=== PATIENT | female | born 1995 | race Caucasian/White ===

== ENCOUNTER 2017-07-04 13:57 | Emergency (ER) | payer OTHER, SELFPAY | END 2017-07-04 15:03 | disposition home or self-care (01) | PROVIDERS: Emergency Provider Nurse Practitioner; Family Provider Pediatrics; Visit Provider Nurse Practitioner | DX: J06.9 Acute upper respiratory infection, unspecified (principal) | CPT/HCPCS: 87804; 99201 ==

== ENCOUNTER → 2018-11-10 16:06 | Outpatient (CLI) | payer OTHER, SELFPAY ==
[2018-11-10 16:51] LABS: Basophils % 0.4 % (0.1-2.0); Eosinophils # 0.2 K/mm3 (0.0-0.4); Eosinophils % 1.7 % (0.1-12.0); Hematocrit 40.3 % (37.0-47.0); Hemoglobin 13.1 g/dL (12.2-16.2); Lymphocytes # 2.4 K/mm3 (0.7-4.5); Lymphocytes % 26.2 % (10-50); Mean Corpuscular HGB Conc 32.5 g/dL (31.8-35.4); Mean Corpuscular Hemoglobin 24.9 pg (27.0-31.2); Mean Corpuscular Volume 76.7 fl (81-99); Mean Platelet Volume 6.9 fl (7.4-10.4); Monocytes # 0.4 K/mm3 (0.1-1.0); Monocytes % 4.2 % (1.7-9.3); Neutrophils # 6.1 K/mm3 (1.8-7.8); Neutrophils % 67.5 % (37.0-80.0); Platelet Count 320 K/mm3 (142-424); Red Blood Count 5.25 M/mm3 (4.20-5.40); Red Cell Distribution Width 13.9 % (11.5-17.5)
[2018-11-10 18:21] LABS: Amphetamine/Metha Screen,Urine Negative ng/mL (<1000); Barbiturates Screen,Urine Negative ng/mL (<200); Benzodiazepines Screen,Urine Negative ng/mL (<200); Cannabinoid Screen,Urine Negative ng/mL (<50); Cocaine Screen,Urine Negative ng/mL (<300); Methadone Screen,Urine Negative ng/mL (<300); Opiate Screen,Urine Negative ng/mL (<300); Phencyclidine Screen,Urine Negative ng/mL (<25)
[2018-11-10 19:06] LABS: Thyroid Stimulating Hormone 2.86 uIU/ml (0.358-3.740)
[2018-11-12 08:19] LABS: Rapid Plasma Reagin Ab Titer Non Reactive (NonRea<1:1)
[2018-11-13 06:21] LABS: HIV Screen 4th Generation wRfx Non Reactive (Non Reactive); Hepatitis B Surface Antigen Negative (Negative); Hepatitis C Antibody <0.1 s/co ratio (0.0-0.9); Rubella Antibodies, IgG 1.01 index (Immune >0.99)
== END ==
PROVIDERS: Visit Provider Obstetrics & Gynecology
DX: Z34.90 Encounter for supervision of normal pregnancy, unspecified, unspecified trimester (principal)
CPT/HCPCS: 36415; 80305; 84443; 85025; 86592; 86703; 86762; 86850; 87340; 87380; G0432

== ENCOUNTER → 2019-01-29 14:38 | Outpatient (CLI) | payer OTHER, SELFPAY ==
[2019-02-01 22:07] LABS: AFP Value 51.3 ng/mL (.); DIA MoM 1.69 (.); DIA Value 218.02 pg/mL (.); DSR (Second Trimester) 1 IN 10000 (.); Gest. Age on Collection Date 17.7 WEEKS (.); Maternal Age At EDD 23.7 yr (.); OSBR Risk 1 IN 1590 (.); Results Report (.); hCG MoM 0.54 (.); hCG Value 11841 mIU/mL (.); uE3 MoM 1.06 (.); uE3 Value 1.12 ng/mL (.)
[2019-02-03 14:06] LABS: Gestat. Age Based On EDD (.)
== END ==
PROVIDERS: Visit Provider Obstetrics & Gynecology
DX: Z34.90 Encounter for supervision of normal pregnancy, unspecified, unspecified trimester (principal)
CPT/HCPCS: 36415; 82106

== ENCOUNTER → 2019-03-22 11:32 | Outpatient (CLI) | payer OTHER, SELFPAY ==
[2019-03-22 15:20] LABS: Glucose 1 Hour 85 mg/dL (74-106)
== END ==
PROVIDERS: Visit Provider Obstetrics & Gynecology
DX: Z34.90 Encounter for supervision of normal pregnancy, unspecified, unspecified trimester (principal)
CPT/HCPCS: 36415

== ENCOUNTER → 2019-06-01 15:34 | Outpatient (CLI) | payer OTHER, SELFPAY | PROVIDERS: Visit Provider Obstetrics & Gynecology | DX: Z34.90 Encounter for supervision of normal pregnancy, unspecified, unspecified trimester (principal) | CPT/HCPCS: 86403 ==

== ENCOUNTER → 2019-06-15 10:04 | Outpatient (CLI) | payer OTHER, SELFPAY ==
[2019-06-15 10:29] LABS: Basophils % 0.2 % (0.1-2.0); Eosinophils # 0.1 K/mm3 (0.0-0.4); Eosinophils % 1.3 % (0.1-12.0); Hematocrit 34.6 % (37.0-47.0); Hemoglobin 10.4 g/dL (12.2-16.2); Lymphocytes % 20.8 % (10-50); Mean Corpuscular HGB Conc 30.1 g/dL (31.8-35.4); Mean Corpuscular Hemoglobin 22.4 pg (27.0-31.2); Mean Corpuscular Volume 74.6 fl (81-99); Mean Platelet Volume 9.5 fl (7.4-10.4); Monocytes # 0.5 K/mm3 (0.1-1.0); Neutrophils # 7.1 K/mm3 (1.8-7.8); Neutrophils % 72.8 % (37.0-80.0); Platelet Count 315 K/mm3 (142-424); Red Blood Count 4.64 M/mm3 (4.20-5.40); Red Cell Distribution Width 14.8 % (11.5-17.5); White Blood Count 9.8 K/mm3 (4.8-10.8)
[2019-06-15 12:00] LABS: Amylase 55 U/L (25-115); Anion Gap 16.4 mEq/L (5-15); Blood Urea Nitrogen 10 mg/dL (7-18); Calcium 8.8 mg/dL (8.5-10.1); Carbon Dioxide 23 mmol/L (21.0-32.0); Chloride 102 mmol/L (98-107); Creatinine,Serum 0.69 mg/dL (0.55-1.02); Estimated Glomerular Filt Rate 105 ml/min (>60); GFR (African American) 128 ML/MIN (>60); Glucose 78 mg/dL (74-106); Lipase 124 u/L (73-393); Potassium 4.4 mmoL/L (3.5-5.1); Sodium 137 mmol/L (136-145)
== END ==
PROVIDERS: Visit Provider Obstetrics & Gynecology
DX: O21.9 Vomiting of pregnancy, unspecified (principal)
CPT/HCPCS: 36415; 80048; 82150; 83690; 85025

== ENCOUNTER → 2019-06-22 10:01 | Outpatient (CLI) | payer OTHER, SELFPAY ==
[2019-06-22 10:04] LABS: Microscopic, Urine URINE MICROSCOPIC (MICROSCOPIC)
[2019-06-22 10:55] LABS: Basophils % 0.5 % (0.1-2.0); Eosinophils # 0.1 K/mm3 (0.0-0.4); Eosinophils % 1.5 % (0.1-12.0); Hematocrit 32.4 % (37.0-47.0); Hemoglobin 9.9 g/dL (12.2-16.2); Lymphocytes # 1.7 K/mm3 (0.7-4.5); Lymphocytes % 23.6 % (10-50); Mean Corpuscular HGB Conc 30.4 g/dL (31.8-35.4); Mean Corpuscular Hemoglobin 21.7 pg (27.0-31.2); Mean Corpuscular Volume 71.3 fl (81-99); Mean Platelet Volume 9.9 fl (7.4-10.4); Monocytes # 0.3 K/mm3 (0.1-1.0); Monocytes % 4.3 % (1.7-9.3); Platelet Count 290 K/mm3 (142-424); Red Blood Count 4.55 M/mm3 (4.20-5.40); Red Cell Distribution Width 14.2 % (11.5-17.5); White Blood Count 7.1 K/mm3 (4.8-10.8)
[2019-06-22 11:25] LABS: Alanine Aminotransferase 127 U/L (12-78); Albumin Level 2.5 gm/dL (3.4-5.0); Albumin/Globulin Ratio 0.7 (1.1-1.8); Alkaline Phosphatase 165 U/L (46-116); Anion Gap 16.6 mEq/L (5-15); Aspartate Amino Transferase 71 U/L (15-37); Bilirubin,Total 0.2 mg/dL (0.2-1.0); Blood Urea Nitrogen 10 mg/dL (7-18); Calcium 8.8 mg/dL (8.5-10.1); Carbon Dioxide 22 mmol/L (21.0-32.0); Chloride 102 mmol/L (98-107); Creatinine,Serum 0.92 mg/dL (0.55-1.02); Estimated Glomerular Filt Rate 76 ml/min (>60); GFR (African American) 92 ML/MIN (>60); Globulin 3.4 gm/dl (1.3-3.2); Glucose 105 mg/dL (74-106); Potassium 3.6 mmoL/L (3.5-5.1); Sodium 137 mmol/L (136-145); Total Protein,Serum 5.9 gm/dL (6.4-8.2)
[2019-06-22 12:27] LABS: Appearance,Urine SL CLOUDY (Clear); Blood, Urine Negative (Negative); Color,Urine DK YELLOW (Yellow); Glucose,Urine (UA) Negative (Negative); Ketones,Urine TRACE (Negative); Leukocyte Esterase,Urine Negative (Negative); Nitrate,Urine POSITIVE (Negative); PH,Urine 5.5 (5.0-8.5); Protein,Urine 1+ (Negative); Specific Gravity, Urine 1.025 (1.005-1.030); Urobilinogen,Urine 0.2 EU/dl (0.2)
[2019-06-22 12:41] LABS: Bilirubin,Urine Negative (Negative)
[2019-06-22 12:53] LABS: RBC,Urine Occasional #/hpf (0-3)
[2019-06-22 12:54] LABS: Bacteria,Urine 1+ /lpf
== END ==
PROVIDERS: Visit Provider Obstetrics & Gynecology
DX: Z01.818 Encounter for other preprocedural examination (principal); Z34.90 Encounter for supervision of normal pregnancy, unspecified, unspecified trimester
CPT/HCPCS: 36415; 80053; 81001; 85025

== ENCOUNTER 2019-06-25 05:03 | Inpatient (IN) ==
[2019-06-25 06:05] LABS: Microscopic, Urine URINE MICROSCOPIC (MICROSCOPIC)
[2019-06-25 06:16] LABS: Appearance,Urine CLEAR (Clear); Blood, Urine Negative (Negative); Color,Urine YELLOW (Yellow); Glucose,Urine (UA) Negative (Negative); Ketones,Urine TRACE (Negative); Leukocyte Esterase,Urine Negative (Negative); Protein,Urine 1+ (Negative); Specific Gravity, Urine 1.025 (1.005-1.030); Urobilinogen,Urine 0.2 EU/dl (0.2)
[2019-06-25 06:24] LABS: Bilirubin,Urine Negative (Negative)
[2019-06-25 06:26] LABS: Calcium 8.8 mg/dL (8.5-10.1)
[2019-06-25 06:49] LABS: Amphetamine/Metha Screen,Urine Negative ng/mL (<1000); Barbiturates Screen,Urine Negative ng/mL (<200); Benzodiazepines Screen,Urine Negative ng/mL (<200); Cannabinoid Screen,Urine Negative ng/mL (<50); Cocaine Screen,Urine Negative ng/mL (<300); Methadone Screen,Urine Negative ng/mL (<300); Opiate Screen,Urine Negative ng/mL (<300); Phencyclidine Screen,Urine Negative ng/mL (<25)
[2019-06-25 06:50] LABS: RBC,Urine Occasional #/hpf (0-3)
[2019-06-25 06:51] LABS: Hyaline Casts,Urine Occasional #/lpf (0); Mucus,Urine 1+ /lpf
[2019-06-25 06:52] LABS: Anion Gap 18.1 mEq/L (5-15)
--- NOTE | 2019-06-25 08:16 | Progress Note ---
[facility] Anesthesia Checklist - Structural Data Admitted From: Home Planned Operative Procedure/s: c/section Consent for Planned Operative Procedure(s) Verified: Yes - Airway Assessment C-Spine Mobility Assessed: Yes TMJ Mobility Assessed: Yes Dentition: Good Dentition - Neurological Assessment Level of Consciousness: Awake, Alert, Appropriate - Anesthesia Plan Anesthesia Risk discussed: Yes Anesthesia Plan: Verified ASA Class: II Anesthesia Type: Spinal [facility] History I have reviewed the patient's past medical history: Yes *Have you ever received a pneumonia vaccine?: No *Have you received a flu vaccine this season?: No Anesthesia experience/problems:: none Other Surgeries: Yes: Amputation: No Fractures: No - *Social History Smoking Status: Never smoker Alcohol Intake: never Alcohol Intake Frequency:: other Substance Use Type: denies use *Occupational Status:: unemployed *Travel in the last 8 weeks: None Family Hx:: No significant family history Para: 1
--- NOTE | 2019-06-25 08:17 | Progress Note ---
[facility] Anesthesia Record Part I Intake, IV Amount: 1,200 Estimated blood loss (mL): 600 Urine output (mL): 800 Blood Pressure: 138/84 SaO2: 100 Pulse Rate: 82 Respiratory Rate: 12 Temperature: 97.1 F Patient is:: Awake, Stable Stable to PACU at:: 08:10
--- NOTE | 2019-06-25 08:17 | Operative Note ---
Date of procedure: 06/25/19 (Term , previous section. Gestational hypertension.) Pre-op Diagnosis:: 1. Term intrauterine . 2. Previous section. 3. Gestational hypertension. Post-op Diagnosis:: 1. Term intrauterine , delivered. 8/9, 7 pound 9 ounce, 19.5 inch male , born at 0740. 2. Previous section. 3. Gestational hypertension. Procedure performed:: Repeat low transverse cervical section. Surgeon:: Luc Cotto MD Neurosurgery Physician(s):: MICHAEL Urbina. PRESS TOOL MAKER:: Luis Carlos Blake Anesthesia: spinal Estimated blood loss (mL): 400 Operative findings:: Term intrauterine . Previous section. Operative note:: After the patient was prepped and draped in usual fashion and spinal anesthesia was administered, a low Pfannenstiel incision was made through the previous incision, and the fat and fascia were in the usual fashion, bleeders being clamped and coagulated along the way. The peritoneum was entered with Metzenbaum scissors, and extended above and below. The bladder peritoneum was sharply and bluntly dissected from the area of incision, and the bladder was protected with a bladder blade. The uterus was entered in a low transverse fashion with a knife, and the incision was extended bluntly, bilaterally. The amniotic sac was ruptured for clear fluid. The baby was found to be in the LOT position of the vertex and, with appropriate fundal pressure, the head was easily delivered. There was no nuchal cord. The baby's nasal and oropharynx were bulb suctioned, and the baby cried spontaneously on the abdomen, as was delivered. The cord was clamped and cut, 3 vessels were noted to be within the cord, and cord blood was obtained. The cord pH was 7.38. The baby was handed into the arms of the attending line mechanic, Dr. Garcia, who assigned Apgars of 8 at 1 minute and 9 at 5 minutes to this 7 pound 9 ounce, 19.5 inch male infant, born at 0740. The baby was taken to the nursery in excellent condition, along with the father, who had been present in the operating room. The placenta was delivered manually, intact. A ring forceps was used to assure adequate drainage to the cervix; this was then passed off the field, as a nonsterile instrument. The uterus was closed in 2 layers, the first a running locked suture of #1 Vicryl as an endometrial layer, followed by a running unlocked suture of #1 Vicryl as a myometrial layer, imbricating over the first. The bladder periton eum was closed with a running unlocked suture of 2-0 Vicryl. Blood and clots were then swept from the gutters, and the tubes and ovaries were inspected and found to be normal. There were several small surface leiomyomata on the uterus, which remain in situ. The peritoneum was grasped with 3 Ursula clamps, and closed with a running semi-locked suture of 0 Vicryl. The muscle was approximated with a running unlocked suture of 0 Vicryl. The fascia was closed with a running locked suture of #1 Vicryl. The subcutaneous fat and Randal's fascia were closed with a running unlocked suture of 2-0 Vicryl. The skin was closed with a subcuticular suture of 3-0 Vicryl, and appropriately dressed. The sponge and needle count was correct. The estimated blood loss was 400 cc. A pelvic examination at the close of the procedure expressed blood and clots from the involuting uterus, with IV Pitocin running. The patient tolerated the procedure well, and was taken to PACU in excellent condition. Her blood type is A+. Her rubella titer is immune. She plans to bottlefeed. Condition: stable Disposition: PACU Specimens:: None. Complications:: None.
[2019-06-25 10:35] LABS: Basophils # 0.1 K/mm3 (0-0.2); Basophils % 0.5 % (0.1-2.0); Eosinophils # 0.2 K/mm3 (0.0-0.4); Eosinophils % 1.6 % (0.1-12.0); Hematocrit 33.2 % (37.0-47.0); Hemoglobin 10.4 g/dL (12.2-16.2); Lymphocytes # 2.1 K/mm3 (0.7-4.5); Lymphocytes % 22.1 % (10-50); Mean Corpuscular HGB Conc 31.4 g/dL (31.8-35.4); Mean Corpuscular Volume 71.9 fl (81-99); Mean Platelet Volume 12.1 fl (7.4-10.4); Monocytes # 0.4 K/mm3 (0.1-1.0); Monocytes % 4.4 % (1.7-9.3); Neutrophils # 6.6 K/mm3 (1.8-7.8); Neutrophils % 71.3 % (37.0-80.0); Platelet Count 279 K/mm3 (142-424); Red Blood Count 4.62 M/mm3 (4.20-5.40); Red Cell Distribution Width 14.6 % (11.5-17.5); White Blood Count 9.3 K/mm3 (4.8-10.8)
--- NOTE | 2019-06-25 14:29 | Progress Note ---
[facility] Anesthesia Record Part II Discharge Time: 08:40 Destination: Obstetric PACU nurse assessment reviewed?: Yes Patient Condition:: Good Anesthesia Complications:: None Swallowing reflex intact?: Yes Cyanosis?: No Blood Pressure: 120/58 Pulse Rate: 90 Temperature: 97.9 F Mental Status: Alert & Oriented Pain level:: 2 Nausea and/or vomitting:: None Intake, IV Amount: 1,200
[2019-06-26 04:33] LABS: Hematocrit 28.9 % (37.0-47.0); Hemoglobin 9.1 g/dL (12.2-16.2)
--- NOTE | 2019-06-26 09:32 | Progress Note ---
Internal Medicine - PN: Subj *Date: 06/26/19 *Time: 09:31 (This is postop day #1 and day #1. The patient is af ebrile. Vital signs stable. Wound clean. Abdomen soft. Lochia normal. Uterine fundus involuting well. Impression: Stable.) Exam Vital signs and Labs for Last 24 Hours: Temp Pulse Resp BP Pulse Ox 98.2 F 78 20 142/86 H 98 06/26/19 08:00 06/26/19 08:00 06/26/19 08:00 06/26/19 08:00 06/26/19 08:00 Laboratory Results - last 24 hr 06/25/19 05:50: WBC 9.3 D, RBC 4.62, Hgb 10.4 L, Hct 33.2 L, MCV 71.9 L, MCH 22.5 L, MCHC 31.4 L, RDW 14.6, Plt Count 279, MPV 12.1 H, Neut % (Auto) 71.3, Lymph % (Auto) 22.1, Williams % (Auto) 4.4, Eos % (Auto) 1.6, Baso % (Auto) 0.5, Neut # (Auto) 6.6, Lymph # (Auto) 2.1, Williams # (Auto) 0.4, Eos # (Auto) 0.2, Baso # (Auto) 0.1 06/26/19 04:05: Hgb 9.1 L D, Hct 28.9 L I & O for Last 24 hours: Intake & Output 06/23/19 06/24/19 06/25/19 06/26/19 11:59 11:59 11:59 11:59 Intake Total 1200 / 1200 1200 / 1200 Balance 1200 / 1200 1200 / 1200 Weight 256 lb
--- NOTE | 2019-06-26 11:48 | Pharmacy Consult Notes ---
[facility] Pharmacy VTE Monitoring - Patient Demographics Admission date: 06/25/19 Report Date: 06/26/19 Time: 11:48 Allergies/Adverse Reactions: Patient Allergies Sulfa (Sulfonamide Antibiotics) [SULFA (SULFONAMIDE ANTIBIOTICS)] Allergy (Mild, Verified 06/25/19 15:23) Rash Height: 1.6 m Weight: 116.12 kg - VTE Risk Labs: VTE Related Lab Results Hgb 9.1 g/dL (12.2-16.2) L D 06/26/19 04:05 Hct 28.9 % (37.0-47.0) L 06/26/19 04:05 Plt Count 279 K/mm3 (142-424) 06/25/19 05:50 BUN 11 mg/dL (7-18) 06/25/19 05:50 Creatinine 0.82 mg/dL (0.55-1.02) 06/25/19 05:50 Estimated Creat Clear 88 mL/min (50-200) 06/25/19 05:50 - Prophylaxis VTE Prophylaxis Ordered?: Yes Types of VTE Prophylaxis: IPCS Thigh High Location of Applied Device: Bilateral Lower Extremeties
[2019-06-27 08:42] VITALS: BP 144/83
--- NOTE | 2019-06-27 08:44 | Progress Note ---
Internal Medicine - PN: Subj *Date: 06/27/19 *Time: 08:43 (Is /postop day #2. The patient is afebrile. Her vital signs are stable. Her blood pressure is 144/82 DTRs are normal. Uterine fundus involuting well. Wound clean. Abdomen soft. Lochia normal. Hemoglobin 9.1 g, but clinically stable. The patient is anxious for early discharge and will be discharged later today.) Exam Vital signs and Labs for Last 24 Hours: Temp Pulse Resp BP Pulse Ox 97.7 F 89 18 144/83 H 100 06/27/19 08:00 06/27/19 08:00 06/27/19 08:00 06/27/19 08:00 06/27/19 08:00 I & O for Last 24 hours: Intake & Output 06/24/19 06/25/19 06/26/19 06/27/19 11:59 11:59 11:59 11:59 Intake Total 1200 / 1200 1200 / 1200 Balance 1200 / 1200 1200 / 1200 Weight 256 lb
--- NOTE | 2019-06-27 08:44 | Progress Note ---
Internal Medicine - PN: Subj *Date: 06/27/19 *Time: 08:43 Exam Vital signs and Labs for Last 24 Hours: Temp Pulse Resp BP Pulse Ox 97.7 F 89 18 144/83 H 100 06/27/19 08:00 06/27/19 08:00 06/27/19 08:00 06/27/19 08:00 06/27/19 08:00 I & O for Last 24 hours: Intake & Output 06/24/19 06/25/19 06/26/19 06/27/19 11:59 11:59 11:59 11:59 Intake Total 1200 / 1200 1200 / 1200 Balance 1200 / 1200 1200 / 1200 Weight 256 lb
--- NOTE | 2019-06-27 08:48 | Discharge Summary ---
General - General Admission date:: 06/25/19 Discharge date: 06/27/19 (This 23-year-old 3, now para 2, Ab1 white female was admitted at 38-5/7 weeks for repeat section because of gestational hypertension. On the date of admission, she was taken to the operating room, where she underwent a repeat low transverse cervical section without complications. The baby was an 8/9, 7 pound 9 ounce, 19.5 inch male infant, born at 0740 on 06/25/2019. The baby is bottlefeeding, has been circumcised, and is done well. and postoperatively, the patient is done well. Her blood pressure is 142/82. DTRs are normal. Lochia is normal. Uterine fundus has involuted well. Wound is clean. Abdomen soft. Her blood type is A+. Her rubella titer is immune. She is anxious for early discharge, and will be discharged today on iron and vitamins (initial hemoglobin 10.4 g; postop hemoglobin 9.1 g, but clinically stable), and on Percocet 5/325 (#20), 1 p.o. every 6 hours as needed pain. She is given appropriate instructions as to diet, exercise, and wound care, and she is to return to the office in 2 weeks for follow-up.) Objective Vital signs: Temp Pulse Resp BP Pulse Ox 97.7 F 89 18 144/83 H 100 06/27/19 08:00 06/27/19 08:00 06/27/19 08:00 06/27/19 08:00 06/27/19 08:00 Discharge Plan - Patient Discharge Instructions Additional Instructions: NO DRIVING FOR 2 WEEKS NO HEAVY LIFTING OR STRENUOUS ACTIVITY NOTHING IN VAGINA FOR [address] FOLLOW-UP WITH DR. DE LA ROSA ON 07/09/19 AT 9:00 Patient Instructions: How to Care for a Surgical Wound, Depression, Hemorrhage, [facility] Post Discharge Instructions - Follow up Plan Follow up with: Luc De La Rosa MD [Staff Physician] - 07/09/19 9:00 am Home Medications: Home Medications Medication Instructions Recorded Confirmed Type No Known Home Medications 06/08/19 06/25/19 History Prescriptions/Medication Reconciliation: No Action No Known Home Medications - Problem Reconciliation Problems Reviewed?: Yes
== END 2019-06-27 14:42 | disposition home or self-care (01) | DRG 788 ==
LOC: OB 05:03
PROVIDERS: ADMIT Obstetrics & Gynecology; ATTEND Obstetrics & Gynecology

== ENCOUNTER 2023-01-29 18:07 | Emergency (ER) | payer OTHER, SELFPAY ==
[2023-01-29 18:30] VITALS: BP 129/84; PULSE 95; RESP 20; TEMP 36.4; O2SAT 98; BMI 45.8
[2023-01-29 18:50] LABS: UTC Strep Screen (Rapid) Negative (Negative)
[2023-01-29 18:51] VITALS: BP 129/84; PULSE 95; RESP 20; TEMP 36.4; O2SAT 98
--- NOTE | 2023-01-29 18:55 | EXP.UTC ---
Discharge Plan Disposition Patient Disposition: Home, Self-Care Condition: Good Prescriptions Prescriptions: No Action norgestimate-ethinyl estradiol [Sprintec (28)] 0.25-35 mg-mcg tablet See Rx Instructions .ROUTE .COMPLEX Qty: 84 3RF Dose Instruction: Take 1 tablet by mouth once daily Rx Instructions: Take 1 tablet by mouth once daily Referrals Follow up/Referrals: Radha Garcia APRN [Primary Care Provider] - See instructions Activity Restrictions/Add. Instructions Additional Instructions/Restrictions: Will send for strep confirmation. Call in 2 days for strep confirmation results. Clinical Impressions Clinical Impression: Upper respiratory tract infection Qualifiers: URI type: unspecified viral URI Qualified Code(s): J06.9 - Acute upper respiratory infection, unspecified Instructions Patient Instructions: DI for Viral Upper Respiratory Infection -- Adult Discharge ED Provider: Marivel Meredith [facility] General Stated complaint: congestion Mode of Arrival: Ambulatory Source of Information: Patient Limitations: No Limitations Time Seen by Provider: 01/29/23 18:55 Description of Symptoms (Recalled from Triage Doc. by RN): PATIENT C/O FEVER, BODY ACHES, CHILLS AND CONGESTION X 2 DAYS HEENT Symptoms (Recalled from RN notes): Yes Resp Symptoms (Recalled from RN notes): No Skin Symptoms (Recalled from RN notes): No MS Symptoms (Recalled from RN notes): No Functional Status (Recalled from RN notes): WNL History of Present Illness Provider Complaint: Pt relates that she has had fever, runny nose, congestion, body aches, and chills for 2 days. She states that her sons have has similar symptoms. She has taken Tylenol for her symptoms. Related Data Previous Rx's Medication Instructions Recorded norgestimate 0.25 mg-ethinyl See Rx Instructions .Route 01/08/23 estradiol 35 mcg tablet (Sprintec .COMPLEX #84 tabs (28)) Allergies Allergy/AdvReac Type Severity Reaction Status Date / Time Sulfa (Sulfonamide Allergy Mild Rash Verified 08/01/22 14:30 Antibiotics) [SULFA (SULFONAMIDE ANTIBIOTICS)] Worker's Comp Is this a Worker's Comp case?: No [facility] Disclaimer: The information contained in this section may have been updated after the patient was seen, as this information can be updated by other users. Social History Smoking Status: Never smoker alcohol intake: never substance use type: denies use current occupational status: other Travel in the last 8 weeks: None ROS Obtained: Yes All systems reviewed & no additional complaints except as documented Constitutional Constitutional: Reports system reviewed and no additional complaints, except as documented, Reports body ache, Reports chills, Reports fatigue, Reports fever(s) and Reports malaise Eyes Eyes: Reports system reviewed and no additional complaints, except as documented ENT Ears, Nose, Mouth, and Throat: Reports system reviewed and no additional complaints, except as documented, Reports nasal congestion, Reports nasal discharge, Reports odynophagia and Reports post nasal drip Cardiovascular Cardiovascular: Reports system reviewed and no additional complaints, except as documented Respiratory Respiratory: Reports system reviewed and no additional complaints, except as documented Gastrointestinal Gastrointestingal: Reports system reviewed and no additional complaints, except as documented and odynophagia Genitourinary Female Genitourinary: Reports system reviewed and no additional complaints, except as documented Musculoskeletal Musculoskeletal: Reports system reviewed and no additional complaints, except as documented Integumentary/Breasts Skin/Breast: Reports system reviewed and no additional complaints, except as documented Neurologic Neurologic: Reports system reviewed and no additional complaints, except as documented Endocrine Endocrine: Reports system reviewed and no additional complaints, ex
== END 2023-01-29 19:42 | disposition home or self-care (01) ==
PROVIDERS: Emergency Provider Nurse Practitioner Family; PCP Nurse Practitioner
DX: B34.9 Viral infection, unspecified (principal); J06.9 Acute upper respiratory infection, unspecified; R50.9 Fever, unspecified
CPT/HCPCS: 87880; 99203; 99212; G0463

== ENCOUNTER 2023-04-11 16:58 | Emergency (ER) | payer OTHER, SELFPAY ==
[2023-04-11 16:58] VITALS: BP 141/89; PULSE 114; RESP 18; TEMP 37.4; O2SAT 99; BMI 50.2
--- NOTE | 2023-04-11 17:10 | EXP.UTC ---
Discharge Plan Disposition Patient Disposition: Home, Self-Care Condition: Good Prescriptions Prescriptions: New ibuprofen [IBU] 800 mg tablet 800 mg PO Q8HP PRN (Reason: Moderate Pain) Qty: 30 0RF ondansetron 4 mg Tablet,Disintegrating 4 mg PO Q8H PRN (Reason: Nausea) Qty: 12 0RF No Action norgestimate-ethinyl estradiol [Sprintec (28)] 0.25-35 mg-mcg tablet See Rx Instructions .ROUTE .COMPLEX Qty: 84 3RF Dose Instruction: Take 1 tablet by mouth once daily Rx Instructions: Take 1 tablet by mouth once daily spironolactone 50 mg tablet 50 mg PO DAILY Qty: 30 2RF citalopram 20 mg tablet 20 mg PO DAILY Patient Comments: TAKE 1 TABLET BY MOUTH ONCE DAILY buspirone 10 mg tablet 10 mg PO BID PRN (Reason: Anxiety) Patient Comments: TAKE 1 TABLET BY MOUTH TWICE DAILY NEEDED Referrals Follow up/Referrals: Radha Garcia APRN [Primary Care Provider] - See instructions Activity Restrictions/Add. Instructions Additional Instructions/Restrictions: Drink plenty of fluids. Take tylenol or ibuprofen for pain or fever. Take the medications as directed. Follow up with your regular doctor. GO TO THE ER FOR ANY WORSENING SYMPTOMS Clinical Impressions Clinical Impression: Acute viral syndrome, Head ache Instructions Patient Instructions: DI for Viral Syndrome, Ketorolac Injection, Dexamethasone Injection Discharge ED Provider: Mateus Noe [facility] General Stated complaint: h/a, upset stomach Time Seen by Provider: 04/11/23 17:10 History of Present Illness Provider Complaint: She states that for the past 2 days she has had malaise, n/v/d and a headache. Related Data Home Medications Medication Instructions Recorded Confirmed buspirone 10 mg tablet 10 mg PO BID PRN Anxiety 04/11/23 04/11/23 citalopram 20 mg tablet 20 mg PO DAILY . 04/11/23 04/11/23 Previous Rx's Medication Instructions Recorded norgestimate 0.25 mg-ethinyl See Rx Instructions .Route 01/08/23 estradiol 35 mcg tablet (Sprintec .COMPLEX #84 tabs (28)) spironolactone 50 mg tablet 50 mg PO DAILY #30 tabs 02/11/23 ibuprofen 800 mg tablet (IBU) 800 mg PO Q8HP PRN Moderate Pain 04/11/23 #30 tabs ondansetron 4 mg disintegrating 4 mg PO Q8H PRN Nausea #12 tabs 04/11/23 tablet Allergies Allergy/AdvReac Type Severity Reaction Status Date / Time Sulfa (Sulfonamide Allergy Mild Rash Verified 04/11/23 17:11 Antibiotics) [SULFA (SULFONAMIDE ANTIBIOTICS)] [facility] Disclaimer: The information contained in this section may have been updated after the patient was seen, as this information can be updated by other users. Social History Smoking Status: Never smoker alcohol intake: never substance use type: denies use current occupational status: other Travel in the last 8 weeks: None ROS Obtained: Yes All systems reviewed & no additional complaints except as documented Constitutional Constitutional: Denies chills, Denies fever(s) and Reports headache(s) Eyes Eyes: Denies eye discharge ENT Ears, Nose, Mouth, and Throat: Denies dizziness, Denies otalgia, Reports headache(s) and Denies sore throat Cardiovascular Cardiovascular: Denies chest pain Respiratory Respiratory: Denies shortness of breath, Denies chest congestion, Denies cough, Denies stridor and Denies wheezing Gastrointestinal Gastrointestingal: Reports diarrhea, nausea and vomiting; Denies abdominal pain Musculoskeletal Musculoskeletal: Reports system reviewed and no additional complaints, except as documented and Denies arthralgias Integumentary/Breasts Skin/Breast: Denies rash Neurologic Neurologic: Reports as per HPI, Denies dizziness, Reports headache(s) and Denies paresthesias Allergic/Immunologic Allergic/Immunologic: Denies wheezing Physical Exam General General appearance: alert and in no apparent distress Head H
[2023-04-11 18:31] VITALS: BP 141/89; PULSE 114; RESP 18; TEMP 37.4; O2SAT 99
== END 2023-04-11 18:31 | disposition home or self-care (01) ==
PROVIDERS: Emergency Provider Nurse Practitioner Family; PCP Nurse Practitioner
DX: R51.9 Headache, unspecified (principal); R11.2 Nausea with vomiting, unspecified; R19.7 Diarrhea, unspecified; B34.9 Viral infection, unspecified
CPT/HCPCS: 87635; 96372; 99212; 99214; G0463

== ENCOUNTER 2023-08-22 17:02 | Emergency (ER) | payer OTHER, SELFPAY ==
[2023-08-22 17:50] VITALS: BP 136/84; PULSE 98; RESP 19; TEMP 37.1; O2SAT 99; BMI 50.3
[2023-08-22 18:09] LABS: UTC Influenza A Antigen Negative (Negative); UTC Influenza B Antigen Negative (Negative); UTC Strep Screen (Rapid) Negative (Negative)
--- NOTE | 2023-08-22 18:11 | ED_ITS ---
Discharge Plan Disposition Patient Disposition: Home, Self-Care Condition: Good Prescriptions Prescriptions: No Action norgestimate-ethinyl estradiol [Sprintec (28)] 0.25-35 mg-mcg tablet See Rx Instructions .ROUTE .COMPLEX Qty: 84 3RF Dose Instruction: Take 1 tablet by mouth once daily Rx Instructions: Take 1 tablet by mouth once daily spironolactone 50 mg tablet 50 mg PO DAILY Qty: 30 2RF citalopram 20 mg tablet 20 mg PO DAILY Patient Comments: TAKE 1 TABLET BY MOUTH ONCE DAILY buspirone 10 mg tablet 10 mg PO BID PRN (Reason: Anxiety) Patient Comments: TAKE 1 TABLET BY MOUTH TWICE DAILY NEEDED ibuprofen [IBU] 800 mg tablet 800 mg PO Q8HP PRN (Reason: Moderate Pain) Qty: 30 0RF ondansetron 4 mg Tablet,Disintegrating 4 mg PO Q8H PRN (Reason: Nausea) Qty: 12 0RF Referrals Follow up/Referrals: Radha Garcia APRN [Primary Care Provider] - See instructions Activity Restrictions/Add. Instructions Additional Instructions/Restrictions: *Monitor Temp, Over the counter Motrin or Tylenol as directed/as needed Tylenol every 4 hours and Motrin every 6 hours (as long as your family doctor has told you that you can take it) for fever or pain. and straight to ER if unable to lower temp less than 101.0 after medication given *Warm salt water gargles may help to soothe the throat *Throat Lozenges? *Warm fluids like tea with honey may help to soothe the throat? *Sleep elevated *Humidifier/Vaporizer Your throat swab was sent for culture. Those results are typically sent to your primary care. Be sure to follow up in 2-3 days with your family doctor/primary care physician if no improvement so they can review those result and treat if necessary. If you don?t have a primary care doctor, I recommend you get one but in the mean time, you will have to return to a walk in clinic Follow up IMMEDIATELY for new or worsening symptoms or no Noticeable improvement over the next 48-72 hours. 911 for difficulty breathing or swallowing Clinical Impressions Clinical Impression: Viral syndrome Instructions Patient Instructions: Sore Throat Discharge ED Provider: Marla Hawkins [facility] HPI General Stated complaint: st ba nausea Mode of Arrival: Ambulatory Source of Information: Patient Limitations: No Limitations Time Seen by Provider: 08/22/23 18:11 Description of Symptoms (Recalled from Triage Doc. by RN): PATIENT C/O SORE THROAT AND BODY ACHES SINCE YESTERDAY HEENT Symptoms (Recalled from RN notes): Yes Resp Symptoms (Recalled from RN notes): No Skin Symptoms (Recalled from RN notes): No MS Symptoms (Recalled from RN notes): No Functional Status (Recalled from RN notes): WNL History of Present Illness Provider Complaint: Patient states that she has been having sore throat and body aches since yesterday States today she was still not feeling any better so today she came in to get checked Related Data Home Medications Medication Instructions Recorded Confirmed buspirone 10 mg tablet 10 mg PO BID PRN Anxiety 04/11/23 04/11/23 citalopram 20 mg tablet 20 mg PO DAILY . 04/11/23 04/11/23 Previous Rx's Medication Instructions Recorded norgestimate 0.25 mg-ethinyl See Rx Instructions .Route 01/08/23 estradiol 35 mcg tablet (Sprintec .COMPLEX #84 tabs (28)) spironolactone 50 mg tablet 50 mg PO DAILY #30 tabs 02/11/23 ibuprofen 800 mg tablet (IBU) 800 mg PO Q8HP PRN Moderate Pain 04/11/23 #30 tabs ondansetron 4 mg disintegrating 4 mg PO Q8H PRN Nausea #12 tabs 04/11/23 tablet Allergies Allergy/AdvReac Type Severity Reaction Status Date / Time Sulfa (Sulfonamide Allergy Mild Rash Verified 04/11/23 17:11 Antibiotics) [SULFA (SULFONAMIDE ANTIBIOTICS)] Worker's Comp Is this a Worker's Comp case?: No [facility] Disclaimer: The information contained in this section may have been updated after the patient was seen, as this information can be updated by other users. Social History Smoking Status: Never smoker alcohol intake: never substance use type: denies use current occupational status: other Travel in the last 8 weeks: None ROS Obtained: Yes All systems reviewed & no additional complaints except as documented and Yes Systems reviewed as appropriate & no additional complaints except as documented Constitutional Constitutional: Reports system reviewed and no additional complaints, except as documented, Reports as per HPI and Reports body ache ENT Ears, Nose, Mouth, and Throat: Reports system reviewed and no additional complaints, except as documented, Reports as per HPI and Reports sore throat Cardiovascular Cardiovascular: Reports system reviewed and no additional complaints, except as documented and Reports as per HPI Respiratory Respiratory: Reports system reviewed and no additional complaints, except as documented and Reports as per HPI Gastrointestinal Gastrointestingal: Reports system reviewed and no additional complaints, except as documented and as per HPI Physical Exam General General appearance: alert and in no apparent distress ENT ENT exam: Present mucous membranes moist Expanded ENT Exam Nose exam: Absent sinus tenderness Throat exam: Present tonsillar erythema Respiratory Respiratory exam: Present normal lung sounds bilaterally; Absent respiratory distress or wheezes Cardiovascular Cardiovascular exam: Present regular rate, normal rhythm and normal heart sounds Abdominal Exam Abdominal exam: Present soft and normal bowel sounds; Absent distention or tenderness Neurological Exam Neurological exam: Present alert, oriented X3 and normal gait Medical Decision Making Barry Inquiry Pt receiving controlled substance: No Barry was queried for this patient: No Vital Signs: 08/22/23 17:50 Temperature 98.8 F Temperature Source Oral Pulse Rate [Left Brachial] 98 H Respiratory Rate 19 Blood Pressure [Left Arm] 136/84 Blood Pressure Mean [Left Arm] 101 Blood Pressure Source [Left Arm] Automatic Cuff Blood Pressure Position [Left Arm] Sitting 02 Sat by Pulse Oximetry 99 Oxygen Delivery Method Room Air Lab Data Lab results reviewed: Yes I reviewed the patient's lab results. Lab Results 08/22/23 17:53: Influenza Type A Ag Negative, Influenza Type B Ag Negative, Strep Scn Rapid Clinic Negative Orders (Tests/Meds): ORDERS Category Date Time Status Strep Screen Confirmation Stat Micro 08/22/23 17:53 Received
[2023-08-22 18:24] VITALS: BP 136/84; PULSE 98; RESP 19; TEMP 37.1; O2SAT 99
== END 2023-08-22 18:28 | disposition home or self-care (01) ==
PROVIDERS: Emergency Provider Nurse Practitioner; PCP Nurse Practitioner
DX: R07.0 Pain in throat (principal); M79.18 Myalgia, other site; B34.9 Viral infection, unspecified
CPT/HCPCS: 87804; 87880; 99212; 99213; G0463

== ENCOUNTER 2023-11-30 05:11 | Emergency (ER) | payer OTHER, SELFPAY ==
[2023-11-30] VITALS (7 sets, daily range): BP systolic 132–151; BP diastolic 71–92; PULSE 75–96; RESP 13–20; TEMP 36.7–36.9; O2SAT 94–100; BMI 51.3
--- NOTE | 2023-11-30 05:10 | ECG_ITS ---
APPROVED REPORT Exam: Resting ECG HR:90 bpm ECG Measurements Heart Rate 90 AXES MN 157 P 40 QRSd 90 QRS -3 QT 341 T 10 QTc 388 Conclusion SINUS RHYTHM MODERATE VOLTAGE CRITERIA FOR LVH, CONSIDER NORMAL VARIANT [MEETS CRITERIA IN ONE OF: R(aVL), S(V1), R(V5), R(V5/V6)+S(V1)] BORDERLINE ECG Electronically signed by : SOFIA MATHEWS, 11/30/2023 07:31:30
--- NOTE | 2023-11-30 05:25 | XR_ITS ---
PROCEDURE INFORMATION: Exam: XR Chest Exam date and time: 11/30/2023 5:42 AM Age: 28 years old Clinical indication: Pain; Chest pressure; Additional info: Cp TECHNIQUE: Imaging protocol: Radiologic exam of the chest. Views: 1 view. COMPARISON: No relevant prior studies available. FINDINGS: Lungs: Increased interstitial markings and perhaps reticular/nodular infiltrates of the right lower lobe. Pleural spaces: Unremarkable. No pleural effusion. No pneumothorax. Heart/Mediastinum: Unremarkable. No cardiomegaly. Bones/joints: Unremarkable. IMPRESSION: Increased interstitial markings and reticular/nodular infiltrates of the right lower lobe. Early infectious process cannot be entirely excluded. Correlate clinically.
--- NOTE | 2023-11-30 05:30 | ED_ITS ---
Discharge Plan Disposition Patient Disposition: Home, Self-Care Condition: Good Prescriptions Prescriptions: New omeprazole 20 mg capsule,delayed release(DR/EC) 20 mg PO DAILY 28 Days Qty: 28 0RF No Action norgestimate-ethinyl estradiol [Sprintec (28)] 0.25-35 mg-mcg tablet See Rx Instructions .ROUTE .COMPLEX Qty: 84 3RF Dose Instruction: Take 1 tablet by mouth once daily Rx Instructions: Take 1 tablet by mouth once daily spironolactone 50 mg tablet 50 mg PO DAILY Qty: 30 2RF citalopram 20 mg tablet 20 mg PO DAILY Patient Comments: TAKE 1 TABLET BY MOUTH ONCE DAILY buspirone 10 mg tablet 10 mg PO BID PRN (Reason: Anxiety) Patient Comments: TAKE 1 TABLET BY MOUTH TWICE DAILY NEEDED ibuprofen [IBU] 800 mg tablet 800 mg PO Q8HP PRN (Reason: Moderate Pain) Qty: 30 0RF ondansetron 4 mg Tablet,Disintegrating 4 mg PO Q8H PRN (Reason: Nausea) Qty: 12 0RF Referrals Follow up/Referrals: Amos Dawson MD [Staff Physician] - See instructions Activity Restrictions/Add. Instructions Additional Instructions/Restrictions: As we discussed, your workup was reassuring in regard to any evidence of a heart attack or infection. Given that your symptoms have improved, it is possible that your symptoms are due to reflux causing pain in your chest. I have prescribed acid reducing medications, please return with any new or worsening symptoms. Clinical Impressions Clinical Impression: Chest pain Instructions Patient Instructions: DI for Diarrhea and Traveler's Diarrhea -- Adult, DI for Diarrhea and Traveler's Diarrhea -- Child, DI for Nausea -- Adult, DI for Nausea -- Child Discharge ED Provider: Perry Wallace General Adult HPI <Steven Harrell MD - Last Filed: 11/30/23 07:27> General Chief complaint: Nausea/Vomiting/Diarrhea Stated complaint: CP Time Seen by Provider: 11/30/23 05:12 Mode of Arrival: Ambulatory Source of Information: Patient Limitations: No Limitations Description of Symptoms (Recalled from ER Triage Doc. by RN): 28 F presents from home with c/o pressure at the level of her sternal notch. She states this started a couple of hours ago; however, it did not wake her up as she has been up throughout the night with a stomach virus. Patient reports this pressure as 2/10 on the pain scale. VSS, NAD History of Present Illness HPI narrative: Patient is a 28-year-old female with no pertinent past medical history who presents emergency department for evaluation of chest pain. History is obtained by patient at bedside. Patient has had chest pain since couple of hours ago, substernal and in her throat, pressure, does not radiate. Patient has had nonbloody vomiting earlier today, sick contacts at home. No other acute complaints at this time. Related Data Home Medications Medication Instructions Recorded Confirmed buspirone 10 mg tablet 10 mg PO BID PRN Anxiety 04/11/23 04/11/23 citalopram 20 mg tablet 20 mg PO DAILY . 04/11/23 04/11/23 Previous Rx's Medication Instructions Recorded norgestimate 0.25 mg-ethinyl See Rx Instructions .Route 01/08/23 estradiol 35 mcg tablet (Sprintec .COMPLEX #84 tabs (28)) spironolactone 50 mg tablet 50 mg PO DAILY #30 tabs 02/11/23 ibuprofen 800 mg tablet (IBU) 800 mg PO Q8HP PRN Moderate Pain 04/11/23 #30 tabs ondansetron 4 mg disintegrating 4 mg PO Q8H PRN Nausea #12 tabs 04/11/23 tablet omeprazole 20 mg capsule,delayed 20 mg PO DAILY 28 days #28 caps 11/30/23 release Allergies Allergy/AdvReac Type Severity Reaction Status Date / Time Sulfa (Sulfonamide Allergy Mild Rash Verified 04/11/23 17:11 Antibiotics) [SULFA (SULFONAMIDE ANTIBIOTICS)] [facility] <Steven Harrell MD - Last Filed: 11/30/23 07:27> [facility] Disclaimer: The information contained in this section may have been updated after the patient was seen, as this information can be updated by other users. Social History Smoking Status: Never smoker alcohol intake: never substance use type: denies use current occupational status: other Travel in the last 8 weeks: None <Steven Harrell MD - Last Filed: 11/30/23 07:27> ROS Obtained: Yes Systems reviewed as appropriate & no additional complaints except as documented Physical Exam <Steven Harrell MD - Last Filed: 11/30/23 07:27> General General appearance: alert and in no apparent distress Head Head exam: atraumatic and normocephalic Eye Eye exam: Present PERRL ENT ENT exam: Present mucous membranes moist Neck Neck exam: Present normal inspection Chest Chest inspection: Present normal inspection and symmetric chest wall rise Respiratory Respiratory exam: Present normal lung sounds bilaterally; Absent respiratory distress Cardiovascular Cardiovascular exam: Present regular rate and normal rhythm Abdominal Exam Abdominal exam: Present soft; Absent tenderness Extremities Exam Extremities exam: Present normal inspection Neurological Exam Neurological exam: Present alert Psychiatric Psychiatric exam: Present normal affect Skin Skin exam: Present warm and dry Medical Decision Making <Steven Harrell MD - Last Filed: 11/30/23 07:27> Barry Inquiry Pt receiving controlled substance: No Vital Signs: 11/30/23 05:11 11/30/23 05:31 11/30/23 07:01 Temperature 98.5 F Temperature Source Oral Pulse Rate 75 96 H Pulse Rate [Left] 90 Respiratory Rate 18 20 20 Blood Pressure 137/92 H 149/91 H Blood Pressure [Right Arm] 151/87 H Blood Pressure Mean [Right Arm] 108 Blood Pressure Source [Right Arm] Automatic Cuff Blood Pressure Position [Right Arm] Sitting 02 Sat by Pulse Oximetry 100 98 95 Oxygen Delivery Method Room Air 11/30/23 07:31 11/30/23 08:01 11/30/23 08:30 Temperature Temperature Source Pulse Rate 80 86 84 Pulse Rate [Left] Respiratory Rate 19 20 19 Blood Pressure 133/71 141/89 H 132/92 H Blood Pressure [Right Arm] Blood Pressure Mean [Right Arm] Blood Pressure Source [Right Arm] Blood Pressure Position [Right Arm] 02 Sat by Pulse Oximetry 96 96 94 L Oxygen Delivery Method 11/30/23 08:50 Temperature 98.0 F Temperature Source Pulse Rate 90 Pulse Rate [Left] Respiratory Rate 13 Blood Pressure 132/92 H Blood Pressure [Right Arm] Blood Pressure Mean [Right Arm] Blood Pressure Source [Right Arm] Blood Pressure Position [Right Arm] 02 Sat by Pulse Oximetry Oxygen Delivery Method Lab Data Lab Results 11/30/23 05:15: WBC 4.5 L, RBC 5.03, Hgb 13.5, Hct 41.5, MCV 82.5, MCH 26.9 L, MCHC 32.6, RDW 13.5, Plt Count 226, MPV 8.2, Neut % (Auto) 60.5, Lymph % (Auto) 26.0, [place] % (Auto) 8.7, Eos % (Auto) 3.2, Baso % (Auto) 1.5, Neut # (Auto) 2.7, Lymph # (Auto) 1.2, [place] # (Auto) 0.4, Eos # (Auto) 0.2, Baso # (Auto) 0.1, D- Dimer 0.38, Sodium 138, Potassium 3.8, Chloride 103, Carbon Dioxide 26, Anion Gap 12.8, BUN 20 H, Creatinine 0.80, Estimated Creat Clear 87, Estimated GFR 85, Est GFR ( Amer) 103, Glucose 105 H, Calcium 9.0, Total Bilirubin 0.3, AST 38 H, ALT 36, Alkaline Phosphatase 64, Troponin I < 0.01, Total Protein 7.3, Albumin 4.0, Globulin 3.3 H, Albumin/Globulin Ratio 1.2, Lipase 84, Serum HCG, Qual Negative 11/30/23 07:10: Troponin I < 0.01 11/30/23 05:15 11/30/23 05:15 Orders (Tests/Meds): ED MEDICATIONS Discontinued Medications Generic Name Dose Route Start Last Admin Trade Name Freq PRN Reason Stop Dose Admin Acetaminophen 1,000 mg 11/30/23 05:29 11/30/23 05:50 Acetaminophen 500mg Tab PO 11/30/23 05:30 1,000 mg ONCE ONE Administration Belladonna Alkaloids 60 ml 11/30/23 05:29 11/30/23 05:51 Belladonna Alkaloids 60 Ml Ml PO 11/30/23 05:30 60 ml ONCE ONE Administration Ketorolac Tromethamine 15 mg 11/30/23 05:29 11/30/23 05:50 Ketorolac 30mg/Ml Vial IV 11/30/23 05:30 15 mg ONCE ONE Administration ORDERS Category Date Time Status CXR --portable [XR chest portable] Stat Exams 11/30/23 05:25 Completed CBC w/Auto Diff [Complete Blood Count Auto Diff] Stat Lab 11/30/23 05:15 Completed CMP [Comprehensive Metabolic Panel] Stat Lab 11/30/23 05:15 Completed D-Dimer Stat Lab 11/30/23 05:15 Completed HCG Qualitative, Serum Stat Lab 11/30/23 05:15 Completed Lipase Stat Lab 11/30/23 05:15 Completed Trop I [Troponin I] Stat Lab 11/30/23 05:15 Completed Troponin I Q3H Lab 11/30/23 07:10 Completed ECG Data Tracing #1: Independently interpreted by me, rate is 90, rhythm is regular, axis is normal, no ST elevation in anatomical contiguous leads, QTc 388. HEART Score History (anamnesis): Slightly suspicious ECG: Normal Age: <45 years Risk factors: No known risk factors Troponin: </= normal limit HEART Score: 0 Medical Decision Narrative: In summary patient is a 20-year-old female past medical history described above who presents emergency department for evaluation of chest pain. Patient is hemodynamically stable nontoxic-appearing upon arrival, afebrile. Differential diagnosis includes ACS, noncardiac chest pain, viral syndrome, among others. Workup will be conducted with hematologic labs, chest x-ray, EKG, serial troponins, D-dimer. Initial interventions include Tylenol, Toradol, GI cocktail. Initial workup reviewed by me, hematologic labs are nonactionable, D- dimer excludes pulmonary embolism, initial troponin undetectably low, hCG negative. Chest x-ray remarkable for interstitial markings and reticular infiltrates of the right lower lobe for which early infectious process cannot be excluded entirely. Patient does not have a dense lobular pneumonia and has no significant cough, is well-appearing without leukocytosis therefore interventions at this time will be deferred. The patient was placed in observation status at 0612. Medical necessity for observational status is serial troponins. The patient was provided serial reevaluations and cardiac monitoring while awaiting results. Repeat evaluation pending at time of transition of care to the oncoming physician, Dr. Wallace. [Results of testing during observation are remarkable for:]. [Because of these results I feel patient can be discharged with follow-up with her PCP versus feel patient requires admission due to]. Total time in observation was [total time]. <Perry Wallace MD - Last Filed: 11/30/23 18:27> Vital Signs: 11/30/23 05:11 11/30/23 05:31 11/30/23 07:01 Temperature 98.5 F Temperature Source Oral Pulse Rate 75 96 H Pulse Rate [Left] 90 Respiratory Rate 18 20 20 Blood Pressure 137/92 H 149/91 H Blood Pressure [Right Arm] 151/87 H Blood Pressure Mean [Right Arm] 108 Blood Pressure Source [Right Arm] Automatic Cuff Blood Pressure Position [Right Arm] Sitting 02 Sat by Pulse Oximetry 100 98 95 Oxygen Delivery Method Room Air 11/30/23 07:31 11/30/23 08:01 11/30/23 08:30 Temperature Temperature Source Pulse Rate 80 86 84 Pulse Rate [Left] Respiratory Rate 19 20 19 Blood Pressure 133/71 141/89 H 132/92 H Blood Pressure [Right Arm] Blood Pressure Mean [Right Arm] Blood Pressure Source [Right Arm] Blood Pressure Position [Right Arm] 02 Sat by Pulse Oximetry 96 96 94 L Oxygen Delivery Method 11/30/23 08:50 Temperature 98.0 F Temperature Source Pulse Rate 90 Pulse Rate [Left] Respiratory Rate 13 Blood Pressure 132/92 H Blood Pressure [Right Arm] Blood Pressure Mean [Right Arm] Blood Pressure Source [Right Arm] Blood Pressure Position [Right Arm] 02 Sat by Pulse Oximetry Oxygen Delivery Method Lab Data Lab Results 11/30/23 05:15: WBC 4.5 L, RBC 5.03, Hgb 13.5, Hct 41.5, MCV 82.5, MCH 26.9 L, MCHC 32.6, RDW 13.5, Plt Count 226, MPV 8.2, Neut % (Auto) 60.5, Lymph % (Auto) 26.0, [place] % (Auto) 8.7, Eos % (Auto) 3.2, Baso % (Auto) 1.5, Neut # (Auto) 2.7, Lymph # (Auto) 1.2, [place] # (Auto) 0.4, Eos # (Auto) 0.2, Baso # (Auto) 0.1, D- Dimer 0.38, Sodium 138, Potassium 3.8, Chloride 103, Carbon Dioxide 26, Anion Gap 12.8, BUN 20 H, Creatinine 0.80, Estimated Creat Clear 87, Estimated GFR 85, Est GFR ( Amer) 103, Glucose 105 H, Calcium 9.0, Total Bilirubin 0.3, AST 38 H, ALT 36, Alkaline Phosphatase 64, Troponin I < 0.01, Total Protein 7.3, Albumin 4.0, Globulin 3.3 H, Albumin/Globulin Ratio 1.2, Lipase 84, Serum HCG, Qual Negative 11/30/23 07:10: Troponin I < 0.01 Orders (Tests/Meds): ED MEDICATIONS Discontinued Medications Generic Name Dose Route Start Last Admin Trade Name Julio PRN Reason Stop Dose Admin Acetaminophen 1,000 mg 11/30/23 05:29 11/30/23 05:50 Acetaminophen 500mg Tab PO 11/30/23 05:30 1,000 mg ONCE ONE Administration Belladonna Alkaloids 60 ml 11/30/23 05:29 11/30/23 05:51 Belladonna Alkaloids 60 Ml Ml PO 11/30/23 05:30 60 ml ONCE ONE Administration Ketorolac Tromethamine 15 mg 11/30/23 05:29 11/30/23 05:50 Ketorolac 30mg/Ml Vial IV 11/30/23 05:30 15 mg ONCE ONE Administration ORDERS Category Date Time Status CXR --portable [XR chest portable] Stat Exams 11/30/23 05:25 Completed CBC w/Auto Diff [Complete Blood Count Auto Diff] Stat Lab 11/30/23 05:15 Completed CMP [Comprehensive Metabolic Panel] Stat Lab 11/30/23 05:15 Completed D-Dimer Stat Lab 11/30/23 05:15 Completed HCG Qualitative, Serum Stat Lab 11/30/23 05:15 Completed Lipase Stat Lab 11/30/23 05:15 Completed Trop I [Troponin I] Stat Lab 11/30/23 05:15 Completed Troponin I Q3H Lab 11/30/23 07:10 Completed HEART Score HEART Score: 0 Medical Decision Narrative: In summary patient is a 20-year-old female past medical history described above who presents emergency department for evaluation of chest pain. Patient is hemodynamically stable nontoxic-appearing upon arrival, afebrile. Differential diagnosis includes ACS, noncardiac chest pain, viral syndrome, among others. Workup will be conducted with hematologic labs, chest x-ray, EKG, serial troponins, D-dimer. Initial interventions include Tylenol, Toradol, GI cocktail. Initial workup reviewed by me, hematologic labs are nonactionable, D- dimer excludes pulmonary embolism, initial troponin undetectably low, hCG negative. Chest x-ray remarkable for interstitial markings and reticular infiltrates of the right lower lobe for which early infectious process cannot be excluded entirely. Patient does not have a dense lobular pneumonia and has no significant cough, is well-appearing without leukocytosis therefore interventions at this time will be deferred. The patient was placed in observation status at 0612. Medical necessity for observational status is serial troponins. The patient was provided serial reevaluations and cardiac monitoring while awaiting results. Repeat evaluation pending at time of transition of care to the oncoming physician, Dr. Wallace. Perry Wallace MD: I assumed care of this patient from the previous emergency medicine physician. Upon repeat evaluation patient reports improvement of her symptoms. Troponins undetectable x 2 and D-dimer within normal limits. At this time she is stable for discharge with outpatient follow-up. Return precautions given. Critical Care <Steven Harrell MD - Last Filed: 11/30/23 07:27> Critical Care Time Critical Care Time: No
[2023-11-30 05:36] LABS: Basophils # 0.1 K/mm3 (0-0.2); Basophils % 1.5 % (0.1-2.0); Eosinophils # 0.2 K/mm3 (0.0-0.4); Eosinophils % 3.2 % (0.1-12.0); Hematocrit 41.5 % (37.0-47.0); Hemoglobin 13.5 g/dL (12.2-16.2); Lymphocytes # 1.2 K/mm3 (0.7-4.5); Mean Corpuscular HGB Conc 32.6 g/dL (31.8-35.4); Mean Corpuscular Hemoglobin 26.9 pg (27.0-31.2); Mean Corpuscular Volume 82.5 fl (81-99); Mean Platelet Volume 8.2 fl (7.4-10.4); Monocytes # 0.4 K/mm3 (0.1-1.0); Monocytes % 8.7 % (1.7-9.3); Neutrophils # 2.7 K/mm3 (1.8-7.8); Neutrophils % 60.5 % (37.0-80.0); Platelet Count 226 K/mm3 (142-424); Red Blood Count 5.03 M/mm3 (4.20-5.40); Red Cell Distribution Width 13.5 % (11.5-17.5); White Blood Count 4.5 K/mm3 (4.8-10.8)
[2023-11-30 05:42] LABS: Alanine Aminotransferase 36 U/L (12-78); Albumin/Globulin Ratio 1.2 (1.1-1.8); Alkaline Phosphatase 64 U/L (38-126); Aspartate Amino Transferase 38 U/L (14-36); Bilirubin,Total 0.3 mg/dl (0.2-1.3); Blood Urea Nitrogen 20 mg/dl (7-17); Carbon Dioxide 26 mmol/L (22.0-30.0); Chloride 103 mmol/L (98-107); Creatinine Clearance Estimated 87 mL/min (50-200); Estimated Glomerular Filt Rate 85 ml/min (>60); GFR (African American) 103 ML/MIN (>60); Globulin 3.3 g/dL (1.3-3.2); Glucose 105 mg/dl (74-100); Sodium 138 mmol/L (136-145); Total Protein,Serum 7.3 g/dl (6.3-8.2)
[2023-11-30 05:43] LABS: HCG Qualitative, Serum Negative (Negative)
[2023-11-30 05:44] LABS: Anion Gap 12.8 mEq/L (5-15); Lipase 84 U/L (23-300); Potassium 3.8 mmoL/L (3.5-5.1)
[2023-11-30 05:47] LABS: D-Dimer 0.38 ug/mL (0.0-0.5)
[2023-11-30] MEDS: ACETAMINOPHEN 500MG TAB 1000 MG PO (05:50)
[2023-11-30] MEDS: KETOROLAC 30MG/ML VIAL 15 MG IV (05:50)
[2023-11-30] MEDS: BELLADONNA ALKALOIDS 60 ML ML PO (05:51)
[2023-11-30 05:57] LABS: Troponin I < 0.01 ng/ml (0.00-0.034)
[2023-11-30 07:52] LABS: Troponin I < 0.01 ng/ml (0.00-0.034)
== END 2023-11-30 08:51 | disposition home or self-care (01) ==
PROVIDERS: Emergency Medicine; Emergency Provider Emergency Medicine; PCP Nurse Practitioner
DX: R07.89 Other chest pain (principal)
CPT/HCPCS: 71045; 80053; 83690; 84484; 84703; 85025; 85378; 93005; 96374; 99284

== ENCOUNTER 2023-12-24 19:37 | Emergency (ER) | payer OTHER, SELFPAY ==
[2023-12-24 19:38] VITALS: BP 174/115; PULSE 77; RESP 20; TEMP 36.8; O2SAT 99; BMI 51.3
--- NOTE | 2023-12-24 19:39 | ED_ITS ---
<Statement entered by Abhay Taylor MD - 12/24/23 23:33> I was consulted by the BOBY, and we discussed the complexity of the problems being addressed. I approved the treatment and management plan for this patient's care in the emergency department, thus performing a substantive portion of the medical decision making. Abhay Taylor MD, ALBERT, FACEP Discharge Plan Disposition Patient Disposition: Home, Self-Care Condition: Good Prescriptions Prescriptions: New pantoprazole [Protonix] 40 mg tablet,delayed release (DR/EC) 40 mg PO DAILY 56 Days Qty: 56 0RF cefdinir 300 mg capsule 300 mg PO BID 10 Days Qty: 20 0RF No Action spironolactone 50 mg tablet 50 mg PO DAILY Qty: 30 2RF norgestimate-ethinyl estradiol [Sprintec (28)] 0.25-35 mg-mcg tablet See Rx Instructions .ROUTE .COMPLEX Qty: 84 0RF Dose Instruction: Take 1 tablet by mouth once daily Rx Instructions: Take 1 tablet by mouth once daily citalopram 20 mg tablet 20 mg PO DAILY Patient Comments: TAKE 1 TABLET BY MOUTH ONCE DAILY buspirone 10 mg tablet 10 mg PO BID PRN (Reason: Anxiety) Patient Comments: TAKE 1 TABLET BY MOUTH TWICE DAILY NEEDED ibuprofen [IBU] 800 mg tablet 800 mg PO Q8HP PRN (Reason: Moderate Pain) Qty: 30 0RF ondansetron 4 mg Tablet,Disintegrating 4 mg PO Q8H PRN (Reason: Nausea) Qty: 12 0RF omeprazole 20 mg capsule,delayed release(DR/EC) 20 mg PO DAILY 28 Days Qty: 28 0RF Referrals Follow up/Referrals: Trung Denny MD [Staff Physician] - See instructions ProviderSharlene MD [Referring] - See instructions Activity Restrictions/Add. Instructions Additional Instructions/Restrictions: Please take your Protonix at nighttime. I would suggest starting MiraLAX in the morning. I have referred you to Dr. Denny for upper endoscopy. He is return to ER for any worsening signs or symptoms as needed. Clinical Impressions Clinical Impression: Abdominal pain, epigastric Urinary tract infectious disease Qualifiers: Urinary tract infection type: site unspecified Hematuria presence: without hematuria Qualified Code(s): N39.0 - Urinary tract infection, site not specified Instructions Patient Instructions: DI for Acute Abdominal Pain Discharge ED Provider: Abhay Taylor General Adult HPI General Chief complaint: Abdominal Pain Stated complaint: pain in abdomin and back,headaches Time Seen by Provider: 12/24/23 19:39 History of Present Illness HPI narrative: Patient presents for epigastric abdominal pain. Patient has been had having intermittent epigastric abdominal pain for a month. She was seen in our ER approximately month ago given a GI cocktail with improvement. Patient has not followed up with a primary care provider and presents today with similar symptoms. She denies cardiac chest pain shortness of breath fever chills hemoptysis hematochezia melena vomiting or diarrhea but does report nausea. Additionally patient reports flank pain located in the lumbar area that does not radiate when she has the abdominal discomfort. Related Data Home Medications Medication Instructions Recorded Confirmed buspirone 10 mg tablet 10 mg PO BID PRN Anxiety 04/11/23 04/11/23 citalopram 20 mg tablet 20 mg PO DAILY . 04/11/23 04/11/23 Previous Rx's Medication Instructions Recorded spironolactone 50 mg tablet 50 mg PO DAILY #30 tabs 02/11/23 ibuprofen 800 mg tablet (IBU) 800 mg PO Q8HP PRN Moderate Pain 04/11/23 #30 tabs ondansetron 4 mg disintegrating 4 mg PO Q8H PRN Nausea #12 tabs 04/11/23 tablet omeprazole 20 mg capsule,delayed 20 mg PO DAILY 28 days #28 caps 11/30/23 release norgestimate 0.25 mg-ethinyl See Rx Instructions .Route 12/16/23 estradiol 35 mcg tablet (Sprintec .COMPLEX #84 tabs (28)) cefdinir 300 mg capsule 300 mg PO BID 10 days #20 caps 12/24/23 pantoprazole 40 mg tablet,delayed 40 mg PO DAILY 8 weeks #56 tabs 12/24/23 release (Protonix) Allergies Allergy/AdvReac Type Severity Reaction Status Date / Time Sulfa (Sulfonamide Allergy Mild Rash Verified 04/11/23 17:11 Antibiotics) [SULFA (SULFONAMIDE ANTIBIOTICS)] [facility] Disclaimer: The information contained in this section may have been updated after the patient was seen, as this information can be updated by other users. Social History Smoking Status: Never smoker alcohol intake: never substance use type: denies use current occupational status: other Travel in the last 8 weeks: None ROS Obtained: Yes Systems reviewed as appropriate & no additional complaints except as documented Physical Exam General General appearance: alert and in no apparent distress Head Head exam: atraumatic and normal inspection Eye Eye exam: Present normal appearance, PERRL and EOMI ENT ENT exam: Present normal exam, normal oropharynx and mucous membranes moist Neck Neck exam: Present normal inspection, full ROM and trachea midline Chest Chest inspection: Present normal inspection and symmetric chest wall rise Respiratory Respiratory exam: Present normal lung sounds bilaterally Cardiovascular Cardiovascular exam: Present regular rate and normal rhythm Abdominal Exam Abdominal exam: Present soft (Obese), tenderness (The epigastrium) and normal bowel sounds; Absent guarding or rebound Extremities Exam Extremities exam: Present normal inspection and full ROM Back Exam Back exam: Present normal inspection and full ROM; Absent tenderness, CVA tenderness (R) or CVA tenderness (L) Neurological Exam Neurological exam: Present alert, oriented X3 and CN II-XII intact Psychiatric Psychiatric exam: Present normal affect and normal mood Skin Skin exam: Present warm, dry and normal color Lymphatic Lymphatic Findings: no adenopathy Medical Decision Making Medical Records Medical records reviewed: Yes I reviewed the patient's medical records. Barry Inquiry Pt receiving controlled substance: No Vital Signs: 12/24/23 19:38 12/24/23 19:53 Temperature 98.3 F Temperature Source Oral Pulse Rate 79 Pulse Rate [Right Radial] 77 Respiratory Rate 20 Blood Pressure 152/93 H Blood Pressure [Right Arm] 174/115 H Blood Pressure Mean [Right Arm] 134 02 Sat by Pulse Oximetry 99 99 Oxygen Delivery Method Room Air Lab Data Lab results reviewed: Yes I reviewed the patient's lab results. Lab Results 12/24/23 19:40: Urine Color Yellow, Urine Appearance Clear, Urine pH 6.0, Ur Specific Vader >= 1.030, Urine Protein Trace, Urine Glucose (UA) Negative, Urine Ketones Negative, Urine Blood Negative, Urine Nitrate Negative, Urine Bilirubin Negative, Urine Urobilinogen 1.0, Ur Leukocyte Esterase Negative, Urine WBC Occasional, Ur Squamous Epith Cells 5-10, Urine Bacteria 1+, Urine Mucus 1+, Urine HCG, Qual Negative 12/24/23 20:00: WBC 7.3, RBC 4.97, Hgb 13.7, Hct 41.2, MCV 82.9, MCH 27.5, MCHC 33.1, RDW 14.2, Plt Count 333, MPV 8.1, Neut % (Auto) 59.3, Lymph % (Auto) 31.2, Lyon % (Auto) 5.3, Eos % (Auto) 3.2, Baso % (Auto) 1.1, Neut # (Auto) 4.3, Lymph # (Auto) 2.3, Lyon # (Auto) 0.4, Eos # (Auto) 0.2, Baso # (Auto) 0.1, PT 10.3, INR 0.95, Sodium 138, Potassium 4.2, Chloride 103, Carbon Dioxide 27, Anion Gap 12.2, BUN 21 H, Creatinine 0.90, Estimated Creat Clear 77, Estimated GFR 75, Est GFR ( Amer) 90, Glucose 106 H, Calcium 9.7, Magnesium 1.9, Total Bilirubin 0.3, AST 36, ALT 37, Alkaline Phosphatase 84, Total Protein 7.3, Albumin 4.1, Globulin 3.2, Albumin/Globulin Ratio 1.3, Lipase 76 12/24/23 20:00 12/24/23 20:00 Orders (Tests/Meds): ED MEDICATIONS Generic Name Dose Route Start Last Admin Trade Name Freq PRN Reason Stop Dose Admin Cefdinir 300 mg 12/25/23 09:00 Cefdinir 300mg Capsule PO 01/04/24 08:59 DAILY MILTON Sodium Chloride 10 ml 12/24/23 21:09 12/24/23 21:09 Sodium Chloride 0.9% 10ml Syr (Rad Only) IV 01/23/24 21:08 10 ml NEEDED PRN Administration Maintain IV Site Discontinued Medications Generic Name Dose Route Start Last Admin Trade Name Freq PRN Reason Stop Dose Admin Acetaminophen 1,000 mg 12/24/23 20:07 12/24/23 20:50 Acetaminophen 1,000mg/100ml Vial IV 12/24/23 20:08 1,000 mg ONCE ONE Administration Belladonna Alkaloids 60 ml 12/24/23 20:07 12/24/23 20:49 Belladonna Alkaloids 60 Ml Ml PO 12/24/23 20:08 60 ml ONCE ONE Administration Lactated Ringer's 1,000 mls @ 999 mls/hr 12/24/23 20:07 12/24/23 20:50 Lactated Ringer's 1000 Ml Bag IV 12/24/23 21:07 999 mls/hr .Q1H1M ONE Administration Iopamidol 75 ml 12/24/23 21:09 12/24/23 21:09 Iopamidol-370 (76%);100ml Bottle IV 12/24/23 21:10 75 ml ONCE ONE Administration Ketorolac Tromethamine 15 mg 12/24/23 20:07 12/24/23 20:49 Ketorolac 30mg/Ml Vial IV 12/24/23 20:08 15 mg ONCE ONE Administration Ondansetron HCl 4 mg 12/24/23 20:07 12/24/23 20:49 Ondansetron 4mg/2ml Vial IV 12/24/23 20:08 4 mg ONCE ONE Administration ORDERS Category Date Time Status CT abdomen pelvis w con Stat Cat Scan 12/24/23 20:08 Completed CBC w/Auto Diff [Complete Blood Count Auto Diff] Stat Lab 12/24/23 20:00 Completed CMP [Comprehensive Metabolic Panel] Stat Lab 12/24/23 20:00 Completed INR [Prothrombin Time INR] Stat Lab 12/24/23 20:00 Completed Lipase Stat Lab 12/24/23 20:00 Completed Magnesium Stat Lab 12/24/23 20:00 Completed UA [Urinalysis and Microscopic] Stat Lab 12/24/23 19:40 Completed Urine , HCG Qual. Stat Lab 12/24/23 19:40 Completed Medical Decision Narrative: In summary patient is a-year-old female who presents to the emergency department for evaluation of epigastric abdominal pain and lumbar back pain. Patient is hemodynamically stable upon arrival, afebrile. Physical exam is remarkable for mild epigastric tenderness on palpation but no rebound or guarding or rigidity. Back pain is not reproducible on palpation. She has negative Ramires sign on abdominal palpation. Differential diagnosis includes GERD esophagitis of ulcer disease cholecystitis pyelonephritis complicated urinary tract infection kidney stone etc. Initial workup will be conducted with hematologic labs CT scan of the abdomen pelvis urinalysis. Initial interventions include crystalloid bolus GI cocktail Toradol Tylenol continuous cardiac monitoring and pulse oximetry. Initial workup reviewed by me shows that her hematologic labs are nonactionable, her urinalysis shows +1 bacteria and leukocytes and my informal interpretation of CT scan abdomen pelvis does not show any evidence of acute processes including a normal gallbladder with no pericholecystic fluid or wall thickening.. Upon repeat evaluation patient reported moderate improvement in her symptoms.. Given this is appropriate for discharge with a prescription for Bactrim with first dose given here for urinary tract infection, referral to Dr. Denny for upper endoscopy, and a prescription for Protonix. Critical Care Critical Care Time Critical Care Time: No
[2023-12-24 19:53] VITALS: BP 152/93; PULSE 79; O2SAT 99
--- NOTE | 2023-12-24 20:08 | CT_ITS ---
PROCEDURE INFORMATION: Exam: CT Abdomen And Pelvis With Contrast Exam date and time: 12/24/2023 8:54 PM Age: 28 years old Clinical indication: Abdominal pain; Epigastric; Additional info: Epigastric abdominal pain TECHNIQUE: Imaging protocol: Computed tomography of the abdomen and pelvis with contrast. Radiation optimization: All CT scans at this facility use at least one of these dose optimization techniques: automated exposure control; mA and/or kV adjustment per patient size (includes targeted exams where dose is matched to clinical indication); or iterative reconstruction. Contrast material: ISOVUE; Contrast volume: 75 ml; Contrast route: IV; COMPARISON: PTV US PELVIS-TRANSVAGINAL ONLY 03/11/2017 1:40 PM FINDINGS: Diaphragm: A small sliding hiatal hernia is present. Liver: Normal. No mass. Gallbladder and bile ducts: Normal. No calcified stones. No ductal dilation. Pancreas: Normal. No ductal dilation. Spleen: Normal. No splenomegaly. Adrenal glands: Normal. No mass. Kidneys and ureters: Normal. No hydronephrosis. Stomach and bowel: Unremarkable. No obstruction. No mucosal thickening. Appendix: No evidence of appendicitis. Intraperitoneal space: Unremarkable. No free air. No significant fluid collection. Vasculature: Unremarkable. No abdominal aortic aneurysm. Lymph nodes: Left upper quadrant multiple prominent mesenteric nodes measuring greater than 5 mm in short axis can be seen with mild infectious or inflammatory enteritis. Urinary bladder: Unremarkable as visualized. Reproductive: Unremarkable as visualized. Bones/joints: Unremarkable. No acute fracture. Soft tissues: Normal. IMPRESSION: A small sliding hiatal hernia is present. Left upper quadrant multiple prominent mesenteric nodes measuring greater than 5 mm in short axis can be seen with mild infectious or inflammatory enteritis.
[2023-12-24 20:18] LABS: Microscopic, Urine URINE MICROSCOPIC (MICROSCOPIC)
[2023-12-24 20:19] LABS: Appearance,Urine CLEAR (Clear); Bilirubin,Urine Negative (Negative); Blood, Urine Negative (Negative); Color,Urine YELLOW (Yellow); Glucose,Urine (UA) Negative (Negative); Ketones,Urine Negative (Negative); Leukocyte Esterase,Urine Negative (Negative); Nitrate,Urine Negative (Negative); Protein,Urine TRACE (Negative); Specific Gravity, Urine >= 1.030 (1.005-1.030)
[2023-12-24 20:21] LABS: Urine Pregnancy, HCG Qual. Negative (Negative)
[2023-12-24 20:21] LABS: Basophils # 0.1 K/mm3 (0-0.2); Basophils % 1.1 % (0.1-2.0); Eosinophils # 0.2 K/mm3 (0.0-0.4); Eosinophils % 3.2 % (0.1-12.0); Hematocrit 41.2 % (37.0-47.0); Hemoglobin 13.7 g/dL (12.2-16.2); Lymphocytes # 2.3 K/mm3 (0.7-4.5); Lymphocytes % 31.2 % (10-50); Mean Corpuscular HGB Conc 33.1 g/dL (31.8-35.4); Mean Corpuscular Hemoglobin 27.5 pg (27.0-31.2); Mean Corpuscular Volume 82.9 fl (81-99); Mean Platelet Volume 8.1 fl (7.4-10.4); Monocytes # 0.4 K/mm3 (0.1-1.0); Monocytes % 5.3 % (1.7-9.3); Neutrophils # 4.3 K/mm3 (1.8-7.8); Neutrophils % 59.3 % (37.0-80.0); Platelet Count 333 K/mm3 (142-424); Red Blood Count 4.97 M/mm3 (4.20-5.40); Red Cell Distribution Width 14.2 % (11.5-17.5); White Blood Count 7.3 K/mm3 (4.8-10.8)
[2023-12-24 20:28] LABS: Chloride 103 mmol/L (98-107); Potassium 4.2 mmoL/L (3.5-5.1); Sodium 138 mmol/L (136-145)
[2023-12-24 20:30] LABS: Alanine Aminotransferase 37 U/L (12-78); Aspartate Amino Transferase 36 U/L (14-36); Blood Urea Nitrogen 21 mg/dl (7-17); Creatinine Clearance Estimated 77 mL/min (50-200); Estimated Glomerular Filt Rate 75 ml/min (>60); GFR (African American) 90 ML/MIN (>60)
[2023-12-24 20:31] LABS: Albumin Level 4.1 g/dl (3.5-5.0); Albumin/Globulin Ratio 1.3 (1.1-1.8); Alkaline Phosphatase 84 U/L (38-126); Anion Gap 12.2 mEq/L (5-15); Bilirubin,Total 0.3 mg/dl (0.2-1.3); Calcium 9.7 mg/dl (8.4-10.2); Carbon Dioxide 27 mmol/L (22.0-30.0); Globulin 3.2 g/dL (1.3-3.2); Glucose 106 mg/dl (74-100); INR 0.95 (0.9-1.1); Lipase 76 U/L (23-300); Magnesium 1.9 mg/dl (1.6-2.3); Prothrombin Time 10.3 seconds (10.1-12.5); Total Protein,Serum 7.3 g/dl (6.3-8.2)
[2023-12-24 20:42] LABS: WBC,Urine Occasional #/hpf (0-3)
[2023-12-24 20:43] LABS: Bacteria,Urine 1+ /lpf; Mucus,Urine 1+ /lpf
[2023-12-24] MEDS: ONDANSETRON 4MG/2ML VIAL 4 MG IV (20:49)
[2023-12-24] MEDS: BELLADONNA ALKALOIDS 60 ML ML PO (20:49)
[2023-12-24] MEDS: KETOROLAC 30MG/ML VIAL 15 MG IV (20:49)
[2023-12-24] MEDS: LACTATED RINGERS 1000ML 1,000 ML 999 ML IV (20:50)
[2023-12-24] MEDS: ACETAMINOPHEN 1,000MG/100ML VIAL 1000 MG IV (20:50)
[2023-12-24] MEDS: SODIUM CHLORIDE 0.9% 10ML SYR (RAD ONLY) 10 ML IV (21:09)
[2023-12-24] MEDS: IOPAMIDOL-370 (76%);100ML BOTTLE 75 ML IV (21:09)
[2023-12-24 22:34] VITALS: BP 147/87; PULSE 72; RESP 20; TEMP 36.8; O2SAT 99
== END 2023-12-24 22:35 | disposition home or self-care (01) ==
PROVIDERS: Physician Assistant; Emergency Provider Student in an Organized Health Care Education/Training Program; PCP Family Medicine
DX: R10.13 Epigastric pain (principal); N39.0 Urinary tract infection, site not specified
CPT/HCPCS: 74177; 80053; 81001; 81025; 83690; 83735; 85025; 85610; 96361; 96374; 96375; 99285; J0131; J1885; J2405; J7120; Q9967